=== PATIENT | male | born 1980 | race Caucasian/White ===

== ENCOUNTER → 2016-08-23 09:50 | Outpatient (CLI) | payer OTHER ==
[2014-08-15 10:01] VITALS: BMI 21.6
[~2016-08-23 09:50] MED LIST: CARAFATE1 G PO; HYDROCODON-ACE1 EAC7 PO; LIBRIUM25 MG PO; NICODERM C1 PATCH .3 TRANSDERM; PAXIL20 MG PO; PRILOSEC20 MG PO; PROTONIX40 MG PO; REGLAN10 MG PO
== END | disposition home or self-care (01) ==
LOC: D.RAD 09:50
DX: Z02.71 Encounter for disability determination (principal)

== ENCOUNTER 2016-09-14 19:49 | Emergency (ER) | payer MEDICAID ==
[2014-08-15 10:01] VITALS: BMI 21.6
== END 2016-09-14 22:26 | disposition home or self-care (01) ==
LOC: D.ER 19:49
DX: Z03.89 Encounter for observation for other suspected diseases and conditions ruled out (principal); F17.200 Nicotine dependence, unspecified, uncomplicated

== ENCOUNTER → 2016-09-15 10:29 | Outpatient (CLI) | payer OTHER ==
[2014-08-15 10:01] VITALS: BMI 21.6
== END | disposition home or self-care (01) ==
LOC: D.RAD 10:29
DX: Z02.71 Encounter for disability determination (principal)

== ENCOUNTER 2016-12-11 15:47 | Emergency (ER) | payer MEDICAID ==
[2014-08-15 10:01] VITALS: BMI 21.6
[2016-12-11 16:44] LABS: BASOPHILS 2.1 % (0-2); EOSINOPHILS 1.1 % (0-7); HEMATOCRIT 40.5 % (42.0-54.0); HEMOGLOBIN 13.9 g/dL (13.5-17.5); LYMPHOCYTES 15.8 % (15-50); MCH 33.7 pg (26.0-34.0); MCHC 34.3 g/dL (31.0-37.0); MCV 98.1 fL (80.0-100.0); MEAN PLATELET VOLUME 9.7 fL (7.4-10.4); MONOCYTES 11.2 % (2-11); NEUTROPHILS 69.8 % (40-80); RBC 4.13 10x6/uL (4.20-6.10); RDW 14.1 % (11.5-14.5); WBC 4.4 10x3/uL (4.8-10.8)
[2016-12-11 16:45] LABS: PLATELET COUNT 101 10x3/uL (130-400)
[2016-12-11 17:05] LABS: ALBUMIN 4.6 g/dL (3.4-5.0); ALKALINE PHOSPHATASE 127 U/L (46-116); ALT (SGPT) 82 U/L (10-68); CALC OSMOLALITY 276 mosm/kg (275-300); CALCIUM 9.1 mg/dL (8.5-10.1); CHLORIDE - SERUM 102 mmol/L (98-107); CREATININE - SERUM 0.7 mg/dL (0.6-1.3); MAGNESIUM - SERUM 1.6 mg/dL (1.8-2.4); POTASSIUM - SERUM 4.1 mmol/L (3.5-5.1); PROTEIN - SERUM 8.5 g/dL (6.4-8.2); SODIUM 138 mmol/L (136-145); UREA NITROGEN 6 mg/dL (7-18); eGFR NON AFRICAN AMERICAN > 90 mL/min (90-120)
[2016-12-11 17:06] LABS: GLUCOSE 144 mg/dL (74-106)
[2016-12-11 17:19] LABS: INR 1.07 (0.85-1.17); PROTIME 13.8 SECONDS (11.6-15.0)
== END 2016-12-11 21:46 | disposition home or self-care (01) ==
LOC: D.ER 15:47
PROVIDERS: Emergency Medicine
DX: F10.10 Alcohol abuse, uncomplicated (principal); F10.239 Alcohol dependence with withdrawal, unspecified; F17.200 Nicotine dependence, unspecified, uncomplicated

== ENCOUNTER 2018-01-30 15:53 | Emergency (ER) | payer SELFPAY ==
[~2018-01-30] VITALS: Ht 170.2 cm; Wt 65.9 kg
[2018-01-30 16:36] VITALS: Ht 170.2 cm; Wt 65.9 kg
[2018-01-30 17:41] LABS: BASOPHILS 0.3 % (0-2); HEMATOCRIT 47.2 % (42.0-54.0); IMMATURE GRANULOCYTES 0.4 % (0-5); LYMPHOCYTES 15.1 % (15-50); MCH 32.5 pg (26.0-34.0); MCV 90.2 fL (80.0-100.0); MEAN PLATELET VOLUME 9.1 fL (7.4-10.4); MONOCYTES 12.4 % (2-11); NEUTROPHILS 70.8 % (40-80); RBC 5.23 10x6/uL (4.20-6.10); RDW 13.4 % (11.5-14.5)
[2018-01-30 17:43] LABS: ALBUMIN 4.4 g/dL (3.4-5.0); ALKALINE PHOSPHATASE 106 U/L (46-116); ALT (SGPT) 282 U/L (10-68); AMYLASE - SERUM 88 U/L (25-115); BILIRUBIN - TOTAL 0.83 mg/dL (0.2-1.3); CALC OSMOLALITY 263 mosm/kg (275-300); CALCIUM 9.4 mg/dL (8.5-10.1); CARBON DIOXIDE 30.5 mmol/L (21.0-32.0); CHLORIDE - SERUM 93 mmol/L (98-107); CREATININE - SERUM 0.9 mg/dL (0.6-1.3); GLUCOSE 116 mg/dL (74-106); LIPASE 148 U/L (73-393); MAGNESIUM - SERUM 1.9 mg/dL (1.8-2.4); POTASSIUM - SERUM 3.8 mmol/L (3.5-5.1); PROTEIN - SERUM 8.7 g/dL (6.4-8.2); SODIUM 132 mmol/L (136-145); UREA NITROGEN 7 mg/dL (7-18); eGFR NON AFRICAN AMERICAN > 90 mL/min (90-120)
[2018-01-30 18:00] LABS: PLATELET COUNT 167 10x3/uL (130-400)
[2018-01-31] MEDS ORDERED: ZOFRAN ODT4 MG/UDTAB PO (01:04)
[2018-01-31] MEDS ORDERED: BENTYL 20 MG TA20 MG PO (01:04)
[2018-01-31 02:00] VITALS: BP 134/80
== END 2018-01-31 02:15 | disposition home or self-care (01) ==
LOC: D.ER 15:53
PROVIDERS: Emergency Medicine
DX: R10.13 Epigastric pain (principal); F10.10 Alcohol abuse, uncomplicated; R11.2 Nausea with vomiting, unspecified; F17.200 Nicotine dependence, unspecified, uncomplicated

== ENCOUNTER 2018-03-23 12:33 | Emergency (ER) | payer SELFPAY ==
[~2018-03-23] VITALS: Ht 170.2 cm; Wt 68.8 kg
[~2018-03-23 12:33] MED LIST changes: +BENTYL 20 MG TA20 MG PO; +ZOFRAN ODT4 MG/UDTAB PO
[2018-03-23 12:37] VITALS: Ht 170.2 cm; Wt 68.8 kg
[2018-03-23 13:07] LABS: BASOPHILS 0.2 % (0-2); EOSINOPHILS 0 % (0-7); HEMATOCRIT 48.4 % (42.0-54.0); HEMOGLOBIN 17.1 g/dL (13.5-17.5); IMMATURE GRANULOCYTES 0.2 % (0-5); LYMPHOCYTES 14.7 % (15-50); MCH 33.3 pg (26.0-34.0); MCHC 35.3 g/dL (31.0-37.0); MCV 94.3 fL (80.0-100.0); MEAN PLATELET VOLUME 10.2 fL (7.4-10.4); MONOCYTES 13.8 % (2-11); NEUTROPHILS 71.1 % (40-80); PLATELET COUNT 127 10x3/uL (130-400); RBC 5.13 10x6/uL (4.20-6.10); RDW 14.2 % (11.5-14.5); WBC 4.8 10x3/uL (4.8-10.8)
[2018-03-23 13:19] LABS: ALKALINE PHOSPHATASE 111 U/L (46-116); ALT (SGPT) 113 U/L (10-68); BILIRUBIN - TOTAL 1.23 mg/dL (0.2-1.3); CALC OSMOLALITY 273 mosm/kg (275-300); CALCIUM 9.3 mg/dL (8.5-10.1); CHLORIDE - SERUM 92 mmol/L (98-107); CREATININE - SERUM 1.1 mg/dL (0.6-1.3); GLUCOSE 123 mg/dL (74-106); POTASSIUM - SERUM 3.2 mmol/L (3.5-5.1); PROTEIN - SERUM 8.2 g/dL (6.4-8.2); SODIUM 137 mmol/L (136-145); UREA NITROGEN 9 mg/dL (7-18); eGFR NON AFRICAN AMERICAN 79 mL/min (90-120)
[2018-03-23 13:30] LABS: CKMB 0.9 U/L (0.0-3.6); CREATINE KINASE 150 UL (21-232); MAGNESIUM - SERUM 1.4 mg/dL (1.8-2.4)
[2018-03-23 13:33] LABS: TROPONIN-I < 0.017 ng/mL (0.000-0.060)
[2018-03-23] MEDS ORDERED: LIBRIUM25 MG PO (16:05)
[2018-03-23 17:49] VITALS: BP 113/78
== END 2018-03-23 17:49 | disposition home or self-care (01) ==
LOC: D.ER 12:33
PROVIDERS: Family Medicine
DX: F10.239 Alcohol dependence with withdrawal, unspecified (principal); E87.6 Hypokalemia; E83.42 Hypomagnesemia; F17.200 Nicotine dependence, unspecified, uncomplicated

== ENCOUNTER 2018-05-28 14:59 | Emergency (ER) | payer MEDICAID ==
[~2018-05-28] VITALS: Ht 170.2 cm; Wt 63.6 kg
[2018-05-28 15:38] VITALS: Ht 170.2 cm; Wt 63.6 kg
[2018-05-28 16:07] LABS: BASOPHILS 0.2 % (0-2); EOSINOPHILS 0 % (0-7); HEMATOCRIT 51.7 % (42.0-54.0); IMMATURE GRANULOCYTES 0.2 % (0-5); LYMPHOCYTES 10.5 % (15-50); MCH 33.6 pg (26.0-34.0); MCHC 34.8 g/dL (31.0-37.0); MCV 96.6 fL (80.0-100.0); MEAN PLATELET VOLUME 10.2 fL (7.4-10.4); MONOCYTES 15.6 % (2-11); NEUTROPHILS 73.5 % (40-80); PLATELET COUNT 130 10x3/uL (130-400); RBC 5.35 10x6/uL (4.20-6.10); WBC 4.7 10x3/uL (4.8-10.8)
[2018-05-28 16:34] LABS: ALBUMIN 3.8 g/dL (3.4-5.0); ALKALINE PHOSPHATASE 166 U/L (46-116); ALT (SGPT) 82 U/L (10-68); BILIRUBIN - TOTAL 1.99 mg/dL (0.2-1.3); CALC OSMOLALITY 279 mosm/kg (275-300); CALCIUM 9.1 mg/dL (8.5-10.1); CARBON DIOXIDE 29.4 mmol/L (21.0-32.0); CHLORIDE - SERUM 95 mmol/L (98-107); GLUCOSE 170 mg/dL (74-106); POTASSIUM - SERUM 3.2 mmol/L (3.5-5.1); PROTEIN - SERUM 8.1 g/dL (6.4-8.2); SODIUM 139 mmol/L (136-145); UREA NITROGEN 8 mg/dL (7-18); eGFR NON AFRICAN AMERICAN 89 mL/min (90-120)
[2018-05-28 16:46] LABS: MAGNESIUM - SERUM 1.4 mg/dL (1.8-2.4)
[2018-05-28] MEDS ORDERED: LIBRIUM25 MG PO (19:05)
[2018-05-28 23:58] VITALS: BP 123/81
== END 2018-05-28 22:05 | disposition home or self-care (01) ==
LOC: D.ER 14:59
PROVIDERS: Family Medicine
DX: F10.10 Alcohol abuse, uncomplicated (principal); E87.6 Hypokalemia; E83.42 Hypomagnesemia